=== PATIENT | female | born 1995 | race American Indian/Alaskan Native ===

== ENCOUNTER 2017-08-07 08:51 | Day surgery (SDC) | payer BC ==
[2017-08-07 10:58] LABS: INR 0.91 (0.87-1.13); Partial Thromboplastin Time 27.4 Sec. (24.2-36.6)
[2017-08-07 11:07] LABS: Hematocrit 33.7 % (30.3-42.9); Hemoglobin 11.2 gm/dl (10.1-14.3); Mean Corpuscular HGB Conc 33 % (30-34); Mean Corpuscular Hemoglobin 29 pg (28-32); Mean Corpuscular Volume 86 fl (79-97); Red Blood Count 3.92 M/mm3 (3.65-5.03); Red Cell Distribution Width 15.7 % (13.2-15.2)
[2017-08-07 11:08] LABS: Basophils % (Auto) 0.2 % (0.0-1.8); Eosinophils % (Auto) 1.5 % (0.0-4.3); Platelet Count 205 K/mm3 (140-440)
[2017-08-07] MEDS ORDERED: VERSED IV ONE (11:16)
[2017-08-07] MEDS ORDERED: SUBLIMAZE IV ONE (11:16)
--- NOTE | 2017-08-07 13:52 | Cat Scan Report ---
CT BIOPSY RENAL RIGHT History: Abnormal kidney function. Description of procedure: Informed consent was obtained. Sterile technique was utilized. 1% lidocaine for skin anesthesia. Moderate sedation was accomplished with Versed and fentanyl. The patient was sedated for 10 minutes. Intraobserver time of 20 minutes. Independent cardiorespiratory monitoring by RN. Using CT guidance, a 17-gauge introducer needle was advanced to the inferior pole of the right kidney. Two 18-gauge core biopsies were obtained. The patient tolerated the procedure without difficulty. Followup scan demonstrates no evidence for hemorrhage. Impression: Successful CT-guided biopsy at the inferior pole of the right kidney.
[2017-08-07 14:29] VITALS: BP 117/73
== END 2017-08-07 15:15 | disposition home or self-care (01) ==
LOC: CATHLABREC 08:51
PROVIDERS: ATTEND Internal Medicine Nephrology
DX: R94.5 Abnormal results of liver function studies (principal); Z79.01 Long term (current) use of anticoagulants
CPT/HCPCS: 36415; 50200; 77012; 85025; 85610; 85730; 88313; 88346; 88348; J2250; J3010

== ENCOUNTER 2017-08-24 10:37 | Outpatient (CLI) | payer BC ==
--- NOTE | 2017-08-24 16:03 | Ultrasound Report ---
ULTRASOUND RENAL INDICATION: Abnormal kidney function studies. COMPARISON: 08/07/2017 CT. FINDINGS: Renal sonography suggests borderline/slight increased renal cortical echogenicity. Grossly preserved contours. No hydronephrosis. RIGHT KIDNEY measures 13 x 5.7 x 6.5 cm with cortical thickness of 1.6 cm. LEFT KIDNEY estimated at 12.3 x 6.3 x 5.4 cm with cortical thickness of 1.4 cm. URINARY BLADDER suggests few tiny intrinsic floating echogenicities/minimal debris. CONCLUSION: No acute renal abnormality, though slight underlying medical renal disease and minimal urinary bladder debris possible sonographically, as described. Please correlate. Thank you for the opportunity to participate in this patient's care.
== END 2017-08-24 10:38 | disposition home or self-care (01) ==
LOC: US 10:37
PROVIDERS: ATTEND Internal Medicine Nephrology
DX: R94.4 Abnormal results of kidney function studies (principal)
CPT/HCPCS: 76770

== ENCOUNTER 2021-05-31 09:44 | Emergency (ER) | payer BC, OTHER ==
[2021-05-31] MEDS ORDERED: MECLIZINE 25 MG TAB PO ONE (11:18)
[2021-05-31] MEDS ORDERED: ONDANSETRON 4 MG/2 ML INJ IV ONE (11:18)
--- NOTE | 2021-05-31 11:20 | Emergency Department Report ---
HPI - General Chief Complaint: Syncope Time Seen by Provider: 05/31/21 10:56 - HPI HPI: Room 25 The patient is a 26-year-old female present with chief complaint of syncope. The patient states she was in her usual state of health (asymptomatic) treatment hemodialysis this morning. Patient states she had been on hemodialysis for 2 hours when she began feeling nauseous and dizzy. The patient then lost consciousness. When the patient came to she was found to be hypertensive and was subsequently given blood pressure medication. The patient was then transferred to the emergency department for further evaluation. The patient states the same thing happened when she had dialysis 4 days ago but she did not go to the hospital. Patient denies any history of fever or cough. Patient denies history of pain. When asked how she is feeling down the patient replies she feels dizzy ED Past Medical Hx - Past Medical History Previous Medical History?: Yes Hx Hypertension: Yes Hx Congestive Heart Failure: Yes Hx Renal Disease: Yes (ESRD hemodialysis q. Thursday, Thursday) Hx Headaches / Migraines: Yes (Migraines) - Surgical History Past Surgical History?: No - Family History Family history: no significant - Social History Smoking Status: Never Smoker Substance Use Type: None (Denies illicit drug use) - Medications Home Medications: Home Medications Medication Instructions Recorded Confirmed Last Taken Type amLODIPine [Norvasc] 10 mg PO DAILY 08/07/17 08/07/17 08/06/17 History carvediloL [Coreg] 25 mg PO BID 08/07/17 08/07/17 08/06/17 History cloNIDine [Catapres] 0.1 mg PO TID 08/07/17 08/07/17 08/06/17 History ED Review of Systems ROS: Stated complaint: SYNCOPAL EPISODE Other details as noted in HPI Constitutional: denies: fever Eyes: denies: eye pain ENT: denies: throat pain Respiratory: denies: shortness of breath Cardiovascular: chest pain Endocrine: no symptoms reported Gastrointestinal: nausea Genitourinary: denies: abnormal menses Musculoskeletal: denies: back pain Neurological: denies: headache Physical Exam - Physical Exam Vital Signs: Vital Signs 05/31/21 10:08 Temperature 98.3 F Pulse Rate 79 Respiratory 18 Rate Blood Pressure 109/69 [Right] O2 Sat by Pulse 100 Oximetry Physical Exam: GENERAL: The patient is well-developed well-nourished female lying on stretcher not appearing to be in acute distress. [] HEENT: Normocephalic. Atraumatic. Extraocular motions are intact. Patient has moist mucous membranes. NECK: Supple. No meningitic signs are noted. Trachea midline CHEST/LUNGS: Clear to auscultation. There is no respiratory distress noted. HEART/CARDIOVASCULAR: Regular. There is no tachycardia. There is no gallop rub or murmur. ABDOMEN: Abdomen is soft, nontender. Patient has normal bowel sounds. There is no abdominal distention. SKIN: There is no rash. There is no edema. There is no diaphoresis. NEURO: The patient is awake, alert, and oriented. The patient is cooperative. The patient has no focal neurologic deficits. The patient has normal speech. Cranial nerves II through XII grossly intact. GCS 15 MUSCULOSKELETAL: There is no evidence of acute injury. ED Course Vital Signs 05/31/21 10:08 Temperature 98.3 F Pulse Rate 79 Respiratory 18 Rate Blood Pressure 109/69 [Right] O2 Sat by Pulse 100 Oximetry - Reevaluation(s) Reevaluation #1: 05/31/21 15:51 Patient states she feels improved ED Medical Decision Making - Lab Data Result diagrams: 05/31/21 12:06 05/31/21 12:06 Laboratory Tests 05/31/21 05/31/21 05/31/21 12:06 12:06 12:06 WBC 4.1 L RBC 3.39 L Hgb 9.0 L Hct 28.7 L MCV 85 MCH 27 L MCHC 31 RDW 21.3 H Plt Count 106 L Lymph % (Auto) 8.3 L [place] % (Auto) 10.5 H Eos % (Auto) 0.8 Baso % (Auto) 0.2 Lymph # (Auto) 0.3 L [place] # (Auto) 0.4 Eos # (Auto) 0.0 Baso # (Auto) 0.0 Seg Neutrophils % 80.2 H Seg Neutrophils # 3.3 D-Dimer 1012.43 H Sodium 131 L Potassium 4.6 Chloride 92.9 L Carbon Dioxide 27 Anion Gap 16 BUN 44 H Creatinine 4.2 H Estimated GFR 15 BUN/Creatinine Ratio 10 Glucose 73 Calcium 7.4 L Total Bilirubin 0.30 AST 17 ALT < 5 L Alkaline Phosphatase 116 Total Creatine Kinase 120 CK-MB (CK-2) < 1.0 CK-MB (CK-2) Rel Index 0.8 Troponin T < 0.010 Total Protein 7.7 Albumin 3.2 L Albumin/Globulin Ratio 0.7 TSH Free T4 HCG, Qual 05/31/21 05/31/21 12:06 12:06 WBC RBC Hgb Hct MCV MCH MCHC RDW Plt Count Lymph % (Auto) [place] % (Auto) Eos % (Auto) Baso % (Auto) Lymph # (Auto) [place] # (Auto) Eos # (Auto) Baso # (Auto) Seg Neutrophils % Seg Neutrophils # D-Dimer Sodium Potassium Chloride Carbon Dioxide Anion Gap BUN Creatinine Estimated GFR BUN/Creatinine Ratio Glucose Calcium Total Bilirubin AST ALT Alkaline Phosphatase Total Creatine Kinase CK-MB (CK-2) CK-MB (CK-2) Rel Index Troponin T Total Protein Albumin Albumin/Globulin Ratio TSH 1.220 Free T4 1.23 HCG, Qual Negative - EKG Data -: EKG Interpreted by Me EKG shows normal: sinus rhythm Rate: normal - EKG Data When compared to previous EKG there are: previous EKG unavailable Interpretation: nonspecific ST-T wave lorie - Radiology Data Radiology results: report reviewed (CT head, chest x-ray, VQ scan), image revie wed (CT head, chest x-ray, VQ scan) interpreted by me: Chest x-ray-no focal infiltrates, no pneumothorax. No foreign body seen [facility] [address] [place] [address] Cat Scan Report Signed Patient: TESSIE LEMON MR#: [id number] : 1995 Acct:[id number] Age/Sex: 26 / F ADM Date: 05/31/21 Loc: ED Attending Dr: Ordering Physician: PAULINA DE MD Date of Service: 05/31/21 Procedure(s): CT head/brain wo con Accession Number(s): [id number] cc: PAULINA DE MD CT HEAD WITHOUT CONTRAST INDICATION / CLINICAL INFORMATION: Syncope, dizziness. TECHNIQUE: Axial imaging performed from the skull apex through the skull base without the use of contrast. Sagittal and coronal reformatted images. All CT scans at this location are performed usi ng CT dose reduction for ALARA by means of automated exposure control. COMPARISON: None available. FINDINGS: CEREBRAL PARENCHYMA: No significant abnormality. No acute territorial infarct. HEMORRHAGE: None. EXTRA-AXIAL SPACES: Normal in size and morphology for the patient's age. VENTRICULAR SYSTEM: Normal in size and morphology for the patient's age. MIDLINE SHIFT OR HERNIATION: None. CEREBELLUM / BRAINSTEM: No significant abnormality. CALVARIUM: No significant abnormality. ORBITS: Normal as visualized. PARANASAL SINUSES / MASTOID AIR CELLS: Normal as visualized. SOFT TISSUES of HEAD: No significant abnormality. ADDITIONAL FINDINGS: None. IMPRESSION: No acute intracranial abnormality. Signer Name: Paulo Villarreal Jr, MD Signed: 05/31/2021 12:13 PM Workstation Name: [id number] Transcribed By: TTR Dictated By: PAULO VILLARREAL JR, MD Electronically Authenticated By: PAULO VILLARREAL JR, MD Signed Date/Time: 05/31/21 1213 DD/ 11 TD/TT: [employer] [address] [address] XRay Report Signed Patient: TESSIE LEMON MR#: [id number] : 1995 Acct:[id number] Age/Sex: 26 / F ADM Date: 05/31/21 Loc: ED Attending Dr: Ordering Physician: PAULINA DE MD Date of Service: 05/31/21 Procedure(s): XR chest 1V ap Accession Number(s): [id number] cc: PAULINA DE MD Fluoro Time In Minutes: CHEST 1 VIEW INDICATION: Syncope. COMPARISON: None FINDINGS: Support devices: Right IJ permacath terminates in the superior right atrium. Heart: Within normal limits. Lungs/Pleura: No acute air space or interstitial disease. Additional findings: None. IMPRESSION: No acute findings. Signer Name: Paulo Villarreal Jr, MD Signed: 05/31/2021 1:42 PM Workstation Name: [id number] Transcribed By: TTR Dictated By: PAULO VILLARREAL JR, MD El [employer]ically Authenticated By: PAULO VILLARREAL JR, MD Signed Date/Time: 05/31/21 1342 DD/ 134 TD/TT: Print [address] [place] [address] Nuclear Medicine Report Signed Patient: TESSIE LEMON MR#: [id number] : 1995 Acct:[id number] Age/Sex: 26 / F ADM Date: 05/31/21 Loc: ED Attending Dr: Ordering Physician: PAULINA DE MD Date of Service: 05/31/21 Procedure(s): NM perfusion only lung scan Accession Number(s): [id number] cc: PAULINA DE MD NUCLEAR MEDICINE PERFUSION SCAN INDICATION: Syncope, elevated D-dimer CORRELATION: AP chest performed earlier today RADIOPHARMACEUTICAL: Perfusion: 5.5 mCi Tc-99m MAA given IV FINDINGS: Perfusion images show symmetric and uniform radiotracer distribution throughout bilateral lung zones with no evidence of unmatched segmental perfusion defects. Normal cardiac silhouette. IMPRESSION: Very low probability perfusion scan for pulmonary embolism. Signer Name: Paulo Villarreal Jr, MD Signed: 05/31/2021 3:26 PM Workstation Name: [id number] Transcribed By: TTR Dictated By: PAULO VILLARREAL JR, MD Electronically Authenticated By: PAULO VILLARREAL JR, MD Signed Date/Time: 05/31/21 152 DD/ 25 TD/TT: Print Cancel - Differential Diagnosis Syncope, vasovagal syncope, intracranial hemorrhage, PE, hypotension, Critical care attestation.: If time is entered above; I have spent that time in minutes in the direct care of this critically ill patient, excluding procedure time. ED Disposition Clinical Impression: Syncope Disposition: DC-01 TO HOME OR SELFCARE Is pt being admited?: No Does the pt Need Aspirin: No Condition: Stable Instructions: Syncope (ED) Additional Instructions: Return to the emergency department should you develop worsening symptoms, inability to tolerate food or liquids, high fever or any other concerns Referrals: PRIMARY CAREMD [Primary Care Provider] - 3-5 Days Time of Disposition: 15:51
--- NOTE | 2021-05-31 12:18 | Cat Scan Report ---
CT HEAD WITHOUT CONTRAST INDICATION / CLINICAL INFORMATION: Syncope, dizziness. TECHNIQUE: Axial imaging performed from the skull apex through the skull base without the use of cont rast. Sagittal and coronal reformatted images. All CT scans at this location are performed using CT dose reduction for ALARA by means of automated exposure control. COMPARISON: None available. FINDINGS: CEREBRAL PARENCHYMA: No significant abnormality. No acute territorial infarct. HEMORRHAGE: None. EXTRA-AXIAL SPACES: Normal in size and morphology for the patient's age. VENTRICULAR SYSTEM: Normal in size and morphology for the patient's age. MIDLINE SHIFT OR HERNIATION: None. CEREBELLUM / BRAINSTEM: No significant abnormality. CALVARIUM: No significant abnormality. ORBITS: Normal as visualized. PARANASAL SINUSES / MASTOID AIR CELLS: Normal as visualized. SOFT TISSUES of HEAD: No significant abnormality. ADDITIONAL FINDINGS: None. IMPRESSION: No acute intracranial abnormality. Signer Name: Paulo Cox Jr, MD Signed: 05/31/2021 12:13 PM Workstation Name: [id number]
[2021-05-31 12:54] LABS: Basophils % (Auto) 0.2 % (0.0-1.8); Eosinophils % (Auto) 0.8 % (0.0-4.3); Hematocrit 28.7 % (30.3-42.9); Lymphocytes # (Auto) 0.3 K/mm3 (1.2-5.4); Lymphocytes % (Auto) 8.3 % (13.4-35.0); Mean Corpuscular HGB Conc 31 % (30-34); Mean Corpuscular Volume 85 fl (79-97); Monocytes # (Auto) 0.4 K/mm3 (0.0-0.8); Monocytes % (Auto) 10.5 % (0.0-7.3); Platelet Count 106 K/mm3 (140-440); Red Blood Count 3.39 M/mm3 (3.65-5.03)
[2021-05-31 12:59] LABS: Albumin 3.2 g/dL (3.9-5); Blood Urea Nitrogen 44 mg/dL (7-17); Calcium 7.4 mg/dL (8.4-10.2); Hemolysis Index 5
[2021-05-31 13:00] LABS: Alanine Aminotransferase < 5 units/L (7-56); BUN/Creatinine Ratio 10; Creatine Kinase MB < 1.0 ng/mL (0.0-4.0)
[2021-05-31 13:09] LABS: Free T4 (Free Thyroxine) 1.23 ng/dL (0.76-1.46)
[2021-05-31 13:11] VITALS: BP 113/76
[2021-05-31 13:15] LABS: Red Cell Distribution Width 21.3 % (13.2-15.2)
--- NOTE | 2021-05-31 13:46 | XRay Report ---
CHEST 1 VIEW INDICATION: Syncope. COMPARISON: None FINDINGS: Support devices: Right IJ permacath terminates in the superior right atrium. Heart: Within normal limits. Lungs/Pleura: No acute air space or interstitial disease. Additional findings: None. IMPRESSION: No acute findings. Signer Name: Paulo Cox Jr, MD Signed: 05/31/2021 1:42 PM Workstation Name: [id number]
--- NOTE | 2021-05-31 15:30 | Nuclear Medicine Report ---
NUCLEAR MEDICINE PERFUSION SCAN INDICATION: Syncope, elevated D-dimer CORRELATION: AP chest performed earlier today RADIOPHARMACEUTICAL: Perfusion: 5.5 mCi Tc-99m MAA given IV FINDINGS: Perfusion images show symmetric and uniform radiotracer distribution throughout bilateral lung zones with no evidence of unmatched segmental perfusion defects. Normal cardiac silhouette. IMPRESSION: Very low probability perfusion scan for pulmonary embolism. Signer Name: Paulo Cox Jr, MD Signed: 05/31/2021 3:26 PM Workstation Name: [id number]
--- NOTE | 2021-06-03 11:39 | Electrocardiograph Report ---
[facility] Test Date: 2021-05-31 Test Time: 10:16:36 Pat Name: TESSIE LEMON Department: Room: Gender: F Manager Trade: : 1995 Requested By: PAULINA DE Order Number: [id number] Reading MD: Ovidio Tobias Measurements Intervals [place] Rate: 78 P: 37 AL: 157 QRS: 19 QRSD: 88 T: QT: 404 QTc: 460 Interpretive Statements Sinus rhythm Abnrm T, consider ischemia, anterolateral lds No previous ECG available for comparison Electronically Signed On 06-03-2021 11:39:38 EDT by Ovidio Tobias
== END 2021-05-31 16:10 | disposition home or self-care (01) ==
LOC: ED 09:44
DX: R55 Syncope and collapse (principal); I13.2 Hypertensive heart and chronic kidney disease with heart failure and with stage 5 chronic kidney disease, or end stage renal disease; N18.6 End stage renal disease; I50.9 Heart failure, unspecified; G43.909 Migraine, unspecified, not intractable, without status migrainosus
CPT/HCPCS: 36415; 70450; 71045; 78580; 80053; 82550; 82553; 84439; 84443; 84484; 84703; 85025; 85379; 93005; 96374; 99285; A9540; J2405